=== PATIENT | female | born 1980 | race Caucasian/White ===

== ENCOUNTER 2021-11-29 20:50 | Emergency (ER) | payer OTHER ==
[2021-11-29 21:08] VITALS: BP 140/93; PULSE 94; RESP 18; TEMP 98
--- NOTE | 2021-11-29 22:01 | XR ---
EXAMINATION TYPE: XR knee complete LT DATE OF EXAM: 11/29/2021 9:33 PM INDICATION: Patient age:Female; 41 years old; Reason for study: pain; COMPARISON: None. TECHNIQUE: The Left knee(s) was examined in 3 projections. FINDINGS: Minimal osteophyte formation of the tibial plateau. No evidence of any acute osseous pathol ogy, joint space narrowing, soft tissue swelling, Small joint effusion. IMPRESSION: 1. No acute osseous pathology. 2. Mild tricompartmental osteoarthritic changes with suspected small left joint effusion.
[2021-11-29] MEDS ORDERED: IBUPROFEN 600 MG TAB PO STA (22:14)
--- NOTE | 2021-11-29 22:14 | ED ---
Lower Extremity Injury HPI - General Chief Complaint: Extremity Injury, Lower Stated Complaint: L knee pain/fall Time Seen by Provider: 11/29/21 21:36 Source: patient Mode of arrival: wheelchair Limitations: no limitations - History of Present Illness Initial Comments: This patient is a 41-year-old woman who was running to render medical assistance to person, when she felt a pop in her knee, and then after that noticed that there was pain and some swelling that developed. The patient states that most the pain is at the lateral aspect of the knee joint. She has been able to bear some weight on the leg. She states that the pain is a little worse when she tries to flex the knee. She denies previous knee surgery. She states she probably has had sprains in the past. No weakness or numbness distal. MD Complaint: knee injury Onset/Timin -: hour(s) Injury: Knee: Left Type of Injury: blunt Place: street/outdoors Severity: moderate Improves With: immobilization Worsens With: weight bearing Context: running Associated Symptoms: snap/pop sensation, swelling, able to partially bear weight - Related Data Previous Rx's Medication Instructions Recorded Ibuprofen [Motrin] 600 mg PO Q8HR PRN #20 tab 11/29/21 Allergies Allergy/AdvReac Type Severity Reaction Status Date / Time diphenhydramine Allergy Unknown Verified 11/29/21 21:05 [From Julio] Review of Systems ROS Statement: Those systems with pertinent positive or pertinent negative responses have been documented in the HPI. ROS Other: All systems not noted in ROS Statement are negative. Constitutional: Denies: fever, chills, weakness Cardiovascular: Denies: chest pain Musculoskeletal: Reports: joint swelling, arthralgia. Denies: back pain Neurological: Denies: weakness, numbness, paresthesias Past Medical History Past Medical History: No Reported History History of Any Multi-Drug Resistant Organisms: None Reported Past Surgical History: Section Past Psychological History: No Psychological Hx Reported Smoking Status: Current every day smoker Past Alcohol Use History: Daily Past Drug Use History: None Reported General Exam Limitations: no limitations General appearance: alert, in no apparent distress Head exam: Present: atraumatic, normocephalic Extremities exam: Present: normal inspection, tenderness, normal capillary r efill. Absent: full ROM Left Hip exam: Present: normal inspection, full ROM Upper Leg exam: Present: normal inspection, full ROM Knee exam: Present: tenderness, swelling, effusion, pain/laxity with varus, full knee extension. Absent: full ROM, abrasion, laceration, ecchymosis, deformity, crepitus, dislocation, erythema, pain w/ pronation/supination Lower Leg exam: Present: normal inspection, full ROM. Absent: tenderness, swelling Ankle exam: Present: normal inspection, full ROM. Absent: tenderness, swelling Foot/Toe exam: Present: normal inspection, full ROM. Absent: tenderness, swelling Neurovascular tendon exam: Present: no vascular compromise. Absent: pulse deficit, abnormal cap refill, motor deficit, sensory deficit, tendon deficit Neurological exam: Present: alert. Absent: motor sensory deficit Skin exam: Present: warm, dry, intact, normal color. Absent: rash Course Vital Signs 11/29/21 21:05 Temperature 98.0 F Pulse Rate 94 Respiratory 18 Rate Blood Pressure 140/93 O2 Sat by Pulse 98 Oximetry Disposition Clinical Impression: Left knee sprain Disposition: HOME SELF-CARE Condition: Good Instructions (If sedation given, give patient instructions): Knee Sprain (ED) Prescriptions: Ibuprofen [Motrin] 600 mg PO Q8HR PRN #20 tab PRN Reason: Pain Is patient prescribed a controlled substance at d/c from ED?: No When asked, does pt state using other controlled substances?: No If prescribed controlled substance>3 days was MAPS reviewed?: Prescribed <3 Days If opioid is for acute pain is fill amount 7 days or less?: No If Rx opioid, was Start Talking consent form obtained?: No Referrals: None,Stated [Primary Care Provider] - 1-2 days Time of Disposition: 22:10
== END 2021-11-29 23:55 | disposition home or self-care (01) ==
LOC: EC 20:50
DX: S83.92XA Sprain of unspecified site of left knee, initial encounter (principal); F17.200 Nicotine dependence, unspecified, uncomplicated; Z88.8 Allergy status to other drugs, medicaments and biological substances; X58.XXXA Exposure to other specified factors, initial encounter
CPT/HCPCS: 73562; 99283; L1830